=== PATIENT | female | born 1975 | race Two or more races ===

== ENCOUNTER 2022-10-03 15:17 | Emergency (ER) | payer OTHER ==
[~2022-10-03] VITALS: Ht 172.7 cm; Wt 207.2 kg
[2022-10-03] MEDS ORDERED: FUROSEMIDE 40 MG/4 ML VIAL IV ONE (16:00)
[2022-10-03 16:38] LABS: Eosinophils # (auto) 0.1 10 ^3/uL (0-0.8)
[2022-10-03 16:42] LABS: Basophils # (auto) 0 10 ^3/uL (0-0.2); Basophils % (auto) 0.4 % (0.0-2.0); Hemoglobin 16.5 g/dL (12.2-16.2); Lymphocytes % (auto) 15.7 % (10.0-50.0); Mean Corpuscular Hemoglobin 26.9 pg (28.0-32.0); Mean Corpuscular Hgb Conc. 30.6 g/dL (32.0-36.0); Monocytes # (auto) 0.7 10 ^3/uL (0-1.3); Monocytes % (auto) 10.3 % (0.0-12.0); Neutrophils # (auto) 4.8 10 ^3/uL (1.6-8.6); Neutrophils % (auto) 72.6 % (37.0-80.0); Nucleated Red Blood Cells % 0.5 %; Red Blood Cells 6.14 10^6/uL (4.0-5.20); Red Cell Distribution Width 19.3 % (11.8-14.3); White Blood Cell 6.6 10^3/uL (4.4-10.8)
[2022-10-03 16:56] LABS: INR 1.31 (0.9-1.15); Partial Thromboplastin Time 28.3 SEC (24.5-34.5); Prothrombin Time 13.5 sec (9.3-11.8)
[2022-10-03 17:01] VITALS: PULSE 88; RESP 19; O2SAT 94
[2022-10-03 17:03] LABS: Albumin 2.7 g/dL (3.4-5.0); Anion Gap 6 (5-15); Blood Urea Nitrogen 28 mg/dL (7-18); Calcium 8.1 mg/dL (8.5-10.1); Carbon Dioxide 30 mmol/L (21-32); Chloride 102 mmol/L (98-107); Potassium 5.1 mmol/L (3.5-5.1); Sodium 138 mmol/L (136-145)
[2022-10-03 17:06] LABS: Alanine Aminotransferase 26 U/L (13-56); Aspartate Aminotransferase 31 U/L (15-37); GFR African American 77 mL/min; GFR Non-African American 63 mL/min; Glucose 84 mg/dL (74-106)
[2022-10-03 17:09] LABS: Alkaline Phosphatase 72 U/L (45-117); Bilirubin, Total 1.5 mg/dL (0.2-1.0); Total Protein 7.2 g/dL (6.4-8.2)
[2022-10-03 19:45] VITALS: PULSE 92; RESP 22; O2SAT 94
[2022-10-03 20:40] LABS: COVID19 ANTIGEN SOFIA FIA NEGATIVE (NEGATIVE)
[2022-10-03 23:13] VITALS: BP 131/87; RESP 18; TEMP 98; O2SAT 95
[2022-10-03 23:19] VITALS: PULSE 92
== END 2022-10-03 23:38 | disposition hospice, inpatient (51) ==
LOC: ER 15:17
DX: I50.33 Acute on chronic diastolic (congestive) heart failure (principal); R60.9 Edema, unspecified; Z98.890 Other specified postprocedural states; Z20.822 Contact with and (suspected) exposure to COVID-19
CPT/HCPCS: 36415; 71045; 80053; 83735; 83880; 84484; 85025; 85610; 85730; 87426; 93005; 96374; 99285; J1940